=== PATIENT | male | born 1935 | race Caucasian/White ===

== ENCOUNTER 2023-01-28 14:55 | Inpatient (IN) ==
[2023-01-28 16:27] LABS: Urine Appearance Clear; Urine Bilirubin Negative (Negative); Urine Blood Negative (Negative); Urine Color Straw; Urine Glucose Negative (Negative); Urine Ketones Negative (Negative); Urine Nitrite Negative (Negative); Urine Protein Negative (Negative); Urine Specific Gravity 1.009 (1.002-1.030); Urine Urobilinogen Negative (Negative)
[2023-01-28 16:50] LABS: ABS Basophils 0.1 10^3/uL (0.0-0.1); ABS Eosinophils 0.4 10^3/uL (0.0-0.5); ABS Lymphocytes 0.9 10^3/uL (1.0-4.8); ABS Monocytes 0.7 10^3/uL (0.0-1.1); ABS Neutrophils 3.5 10^3/uL (1.5-7.6); ABS Nucleated RBC 0.01 10^3/ul; Eosinophil % 7.9 %; Hemoglobin 10.8 g/dL (13.2-16.3); Lymphocyte % 16.2 %; Mean Corpuscular Hemoglobin 34.3 pg (27-33); Mean Corpuscular Hgb Conc 34.8 g/dL (31-36); Mean Corpuscular Volume 98.6 fL (80-97); Mean Platelet Volume 6.9 fL (7.5-11.2); Nucleated Red Blood Cells % 0.1 /100 WBC (0.0-0.4); Platelet Count 161 10^3/uL (150-450); Red Blood Count 3.14 10^6/uL (4.06-5.63); Red Cell Distribution Width 14.8 % (12-17); White Blood Count 5.5 10^3/uL (3.6-10.2)
[2023-01-28 16:58] LABS: Activated Partial Thrombo Time 37.5 seconds (26.0-38.0); INR 2.05 (0.83-1.13)
[2023-01-28] MEDS ORDERED: NS 0.9% 1000 ml BAG 1,000 ML IV ONE (17:23)
[2023-01-28] MEDS ORDERED: cefTRIAXone 1 gm/50 mL D5W 1 GM/50 ML BAG IV ONE (17:33)
[2023-01-28 17:40] LABS: Albumin 3.8 g/dL (3.2-5.2); Calcium 9.8 mg/dL (8.6-10.3); Potassium 3.4 mmol/L (3.5-5.0); Total Bilirubin 0.3 mg/dL (0.2-1.0)
[2023-01-28 17:46] LABS: Albumin/Globulin Ratio 1.2 (1-3); C Reactive Protein 21.78 mg/L (<8.01); Creatinine, Serum 3.25 mg/dL (0.67-1.17); Globulin 3.1 g/dL (2-4); Total Protein 6.9 g/dL (6.4-8.9); eGFR CKD-EPI 17.9 (>60)
[2023-01-28 17:57] LABS: High Sensitivity Troponin 1 Hr 41 pg/mL (<20)
[2023-01-28] MEDS ORDERED: Vancomycin 750 MG in NS 0.9% 250 ml 250 ML IVPB SCH (21:16)
[2023-01-28] MEDS ORDERED: Vancomycin per Pharmacy 1 EA NOTE FOLLOW UP PRN (21:47)
[2023-01-28] MEDS ORDERED: Vancomycin 1,500 MG in NS 0.9% 250 ml 250 ML IVPB ONE (22:00)
[2023-01-28 22:02] LABS: Magnesium 2.1 mg/dL (1.9-2.7)
[2023-01-28] MEDS ORDERED: Albuterol HFA INHALER 8 gm MDI INH PRN (22:15)
[2023-01-29 05:33] LABS: ABS Basophils 0.1 10^3/uL (0.0-0.1); ABS Eosinophils 0.4 10^3/uL (0.0-0.5); ABS Lymphocytes 0.7 10^3/uL (1.0-4.8); ABS Monocytes 0.6 10^3/uL (0.0-1.1); ABS Neutrophils 3.8 10^3/uL (1.5-7.6); Eosinophil % 6.9 %; Hematocrit 30.7 % (38-53); Hemoglobin 10.8 g/dL (13.2-16.3); Lymphocyte % 13.3 %; Mean Corpuscular Hemoglobin 34.7 pg (27-33); Mean Corpuscular Hgb Conc 35.3 g/dL (31-36); Mean Corpuscular Volume 98.4 fL (80-97); Mean Platelet Volume 6.9 fL (7.5-11.2); Nucleated Red Blood Cells % 0.1 /100 WBC (0.0-0.4); Platelet Count 152 10^3/uL (150-450); Red Blood Count 3.11 10^6/uL (4.06-5.63); Red Cell Distribution Width 14.9 % (12-17); White Blood Count 5.5 10^3/uL (3.6-10.2)
[2023-01-29] MEDS ORDERED: Cefepime 1 GM in Dextrose 1 GM/50 ML BAG IV SCH (06:00)
[2023-01-29 06:18] LABS: Calcium 9.7 mg/dL (8.6-10.3); Creatinine, Serum 3.08 mg/dL (0.67-1.17); Magnesium 2.1 mg/dL (1.9-2.7); Potassium 3.3 mmol/L (3.5-5.0); eGFR CKD-EPI 19.1 (>60)
[2023-01-29] MEDS ORDERED: Potassium Chlor 20 meq TAB.ER PO ONE (07:01)
[2023-01-29] MEDS: Isosorbide Mononit ER 30mg TAB PO SCH (09:26)
[2023-01-29] MEDS ORDERED: Albuterol 2.5mg/3 ml (0.083%) NEB.SOLN INH PRN (11:02)
[2023-01-29] MEDS: Lactated Ringers 1000 ml BAG 1,000 ML IV SCH ×2 (14:18→21:21)
[2023-01-29] MEDS: Collagenase 250 units/gm OINT 1 tube TOPICAL SCH (14:42)
[2023-01-29] MEDS ORDERED: cefTRIAXone 1 gm/50 mL D5W 1 GM/50 ML BAG IV SCH (18:30)
[2023-01-29] MEDS: Mometasone 220 MCG MDI INH SCH (20:33)
[2023-01-30 06:56] LABS: ABS Eosinophils 0.4 10^3/uL (0.0-0.5); ABS Lymphocytes 0.8 10^3/uL (1.0-4.8); ABS Monocytes 0.5 10^3/uL (0.0-1.1); ABS Nucleated RBC 0.01 10^3/ul; Eosinophil % 8.6 %; Hematocrit 30.5 % (38-53); Hemoglobin 10.7 g/dL (13.2-16.3); Lymphocyte % 16.7 %; Mean Corpuscular Hemoglobin 34.8 pg (27-33); Mean Corpuscular Hgb Conc 35.2 g/dL (31-36); Mean Corpuscular Volume 98.9 fL (80-97); Mean Platelet Volume 7.4 fL (7.5-11.2); Nucleated Red Blood Cells % 0.1 /100 WBC (0.0-0.4); Platelet Count 136 10^3/uL (150-450); Red Blood Count 3.08 10^6/uL (4.06-5.63); Red Cell Distribution Width 14.9 % (12-17); White Blood Count 4.6 10^3/uL (3.6-10.2)
[2023-01-30 07:16] LABS: Calcium 9.9 mg/dL (8.6-10.3); Creatinine, Serum 2.82 mg/dL (0.67-1.17); Potassium 3.2 mmol/L (3.5-5.0); eGFR CKD-EPI 21.3 (>60)
[2023-01-30] MEDS: Collagenase 250 units/gm OINT 1 tube TOPICAL SCH (09:46)
[2023-01-30] MEDS: Isosorbide Mononit ER 30mg TAB PO SCH (09:46)
[2023-01-30] MEDS ORDERED: Potassium Chlor 20 meq TAB.ER PO ONE (11:32)
[2023-01-30] MEDS: Amoxicillin/Clavul 500/125 TAB (Augmentin 500 mg tab) PO SCH ×2 (12:56→20:32)
[2023-01-30] MEDS: Potassium Chlor 20 meq TAB.ER PO SCH (12:56)
[2023-01-30 13:32] LABS: Ferritin 40.4 ng/mL (24-336)
[2023-01-30 13:35] LABS: Folate > 20.00 ng/mL (5.90-24.80); Vitamin B12 1097 pg/mL (180-914)
[2023-01-30 13:39] LABS: % Iron Saturation 28 % (15-55); .Transferrin 202 mg/dL (203-362); Iron 78 ug/dL (50-212); Total Iron Binding Capacity 283 mcg/dL (250-450); Unsaturated Iron Binding 205 ug/dL
[2023-01-30] MEDS: Lactated Ringers 1000 ml BAG 1,000 ML IV SCH (17:43)
[2023-01-30] MEDS: Mometasone 220 MCG MDI INH SCH (19:51)
[2023-01-31] MEDS: Lactated Ringers 1000 ml BAG 1,000 ML IV SCH (00:51)
[2023-01-31] MEDS: Potassium Chlor 20 meq TAB.ER PO SCH (08:16)
[2023-01-31] MEDS: Amoxicillin/Clavul 500/125 TAB (Augmentin 500 mg tab) PO SCH (08:17)
[2023-01-31] MEDS: Isosorbide Mononit ER 30mg TAB PO SCH (08:17)
[2023-01-31] MEDS: Collagenase 250 units/gm OINT 1 tube TOPICAL SCH (08:17)
[2023-01-31] MEDS ORDERED: Amoxicillin/Clavul 875/125 TAB (Augmentin 875 tab) PO SCH (09:00)
[2023-01-31 09:03] LABS: ABS Eosinophils 0.4 10^3/uL (0.0-0.5); ABS Lymphocytes 0.9 10^3/uL (1.0-4.8); ABS Monocytes 0.5 10^3/uL (0.0-1.1); ABS Neutrophils 3.6 10^3/uL (1.5-7.6); Eosinophil % 6.6 %; Hematocrit 30.8 % (38-53); Hemoglobin 10.8 g/dL (13.2-16.3); Lymphocyte % 16.5 %; Mean Corpuscular Hemoglobin 34.7 pg (27-33); Mean Corpuscular Volume 99.1 fL (80-97); Mean Platelet Volume 7.2 fL (7.5-11.2); Platelet Count 141 10^3/uL (150-450); Red Cell Distribution Width 15.4 % (12-17); White Blood Count 5.3 10^3/uL (3.6-10.2)
[2023-01-31 09:09] LABS: Creatinine, Serum 2.82 mg/dL (0.67-1.17); Magnesium 1.9 mg/dL (1.9-2.7); Potassium 3.5 mmol/L (3.5-5.0); eGFR CKD-EPI 21.3 (>60)
[2023-01-31 10:37] VITALS: BP 121/51
== END 2023-01-31 14:50 | disposition home or self-care (01) | DRG 539 ==
LOC: ED 14:55 → EDHOLD 14:55 → SUATTDRO 19:36 → MEDTELE 01-29 11:42
PROVIDERS: ADMIT Internal Medicine; ATTEND Student in an Organized Health Care Education/Training Program

== ENCOUNTER 2023-03-17 14:54 | Inpatient (IN) ==
[2023-03-17 15:38] LABS: ABS Eosinophils 0.4 10^3/uL (0.0-0.5); ABS Lymphocytes 0.9 10^3/uL (1.0-4.8); ABS Monocytes 0.8 10^3/uL (0.0-1.1); ABS Neutrophils 5.7 10^3/uL (1.5-7.6); ABS Nucleated RBC 0.01 10^3/ul; Eosinophil % 5.3 %; Hematocrit 31.8 % (38-53); Hemoglobin 10.9 g/dL (13.2-16.3); Mean Corpuscular Hgb Conc 34.3 g/dL (31-36); Mean Platelet Volume 7.3 fL (7.5-11.2); Nucleated Red Blood Cells % 0.1 %/100WBC (0.0-0.8); Platelet Count 202 10^3/uL (150-450); Red Blood Count 3.21 10^6/uL (4.06-5.63); Red Cell Distribution Width 15.3 % (12-17); White Blood Count 7.8 10^3/uL (3.6-10.2)
[2023-03-17 16:07] LABS: Albumin 3.3 g/dL (3.2-5.2); Albumin/Globulin Ratio 0.9 (1-3); C Reactive Protein 102.38 mg/L (<8.01); Calcium 9.5 mg/dL (8.6-10.3); Creatinine, Serum 3.31 mg/dL (0.67-1.17); Globulin 3.6 g/dL (2-4); Potassium 3.2 mmol/L (3.5-5.0); Total Bilirubin 0.5 mg/dL (0.2-1.0); Total Protein 6.9 g/dL (6.4-8.9); eGFR CKD-EPI 17.5 (>60)
[2023-03-17] MEDS ORDERED: Acetaminophen IV 1 GM/100ML 1,000 MG/100 ML BAG IV ONE (17:34)
[2023-03-17] MEDS ORDERED: Cefepime 2 GM in Dextrose 2 GM/50 ML BAG IV ONE (18:14)
[2023-03-17] MEDS ORDERED: Vancomycin 1,000 MG in NS 0.9% 250 ml 250 ML IVPB ONE (18:14)
[2023-03-17] MEDS ORDERED: Lactated Ringers 1000 ml BAG 1,000 ML IV ONE (18:14)
[2023-03-17 18:44] LABS: INR 2.56 (0.83-1.13)
[2023-03-17 20:05] LABS: Urine Appearance Clear; Urine Bilirubin Negative (Negative); Urine Blood Negative (Negative); Urine Color Yellow; Urine Glucose Negative (Negative); Urine Ketones Negative (Negative); Urine Nitrite Negative (Negative); Urine Protein 1+(30 mg/dL) (Negative); Urine Specific Gravity 1.013 (1.002-1.030); Urine Urobilinogen Negative (Negative)
[2023-03-17 20:11] LABS: Urine Bacteria Absent (Absent); Urine Red Blood Cell Trace(0-2/hpf) (Absent); Urine Squamous Epithelial Cell Present (Absent); Urine White Blood Cell Trace(0-5/hpf) (Absent)
[2023-03-17] MEDS ORDERED: Potassium Chlor 10 meq TAB PO ONE (22:37)
[2023-03-17] MEDS ORDERED: Albuterol 2.5mg/3 ml (0.083%) NEB.SOLN INH PRN (22:49)
[2023-03-17] MEDS ORDERED: Albuterol HFA INHALER 8 gm MDI INH PRN (22:49)
[2023-03-17] MEDS ORDERED: Warfarin per PHARMACY **NOTE FOLLOW UP SCH (23:00)
[2023-03-17] MEDS ORDERED: Vancomycin per Pharmacy 1 EA NOTE FOLLOW UP SCH (23:00)
[2023-03-17] MEDS ORDERED: Cefepime 2 GM in Dextrose 2 GM/50 ML BAG IV SCH (23:00)
[2023-03-17] MEDS ORDERED: Lidocaine 2% w EPI 1:100,000 20 ML MDV VIAL ONE (23:28)
[2023-03-17] MEDS ORDERED: Lidocaine 1% MPF 5 ML VIAL ONE (23:29)
[2023-03-18 03:30] LABS: Folate > 20.00 ng/mL (5.90-24.80)
[2023-03-18 03:31] LABS: Vitamin B12 1266 pg/mL (180-914)
[2023-03-18] MEDS ORDERED: Vancomycin Random Level NOTE FOLLOW UP ONE (06:00)
[2023-03-18] MEDS ORDERED: Cefepime 1 GM in Dextrose 1 GM/50 ML BAG IV SCH (06:00)
[2023-03-18 06:16] LABS: ABS Basophils 0.1 10^3/uL (0.0-0.1); ABS Eosinophils 0.5 10^3/uL (0.0-0.5); ABS Lymphocytes 0.7 10^3/uL (1.0-4.8); ABS Monocytes 0.7 10^3/uL (0.0-1.1); ABS Neutrophils 5.9 10^3/uL (1.5-7.6); ABS Nucleated RBC 0.01 10^3/ul; Eosinophil % 6.9 %; Hemoglobin 10.7 g/dL (13.2-16.3); Lymphocyte % 8.7 %; Mean Corpuscular Hemoglobin 34.3 pg (27-33); Mean Corpuscular Hgb Conc 34.6 g/dL (31-36); Mean Platelet Volume 7.1 fL (7.5-11.2); Nucleated Red Blood Cells % 0.1 %/100WBC (0.0-0.8); Platelet Count 195 10^3/uL (150-450); Red Blood Count 3.13 10^6/uL (4.06-5.63); Red Cell Distribution Width 14.9 % (12-17); White Blood Count 7.9 10^3/uL (3.6-10.2)
[2023-03-18 06:36] LABS: INR 2.36 (0.83-1.13)
[2023-03-18 06:47] LABS: Calcium 9.4 mg/dL (8.6-10.3); Creatinine, Serum 3.23 mg/dL (0.67-1.17); Magnesium 1.6 mg/dL (1.9-2.7); Potassium 2.9 mmol/L (3.5-5.0); eGFR CKD-EPI 18.1 (>60)
[2023-03-18 07:12] LABS: Vancomycin Random 9.6 mcg/mL
[2023-03-18] MEDS ORDERED: Vancomycin 1,250 MG in NS 0.9% 250 ml 250 ML IVPB ONE (09:30)
[2023-03-18] MEDS ORDERED: Magnesium Sulfate 2 gm BAG 2 GM/50 ML BAG IVPB ONE (11:17)
[2023-03-18] MEDS ORDERED: Magnesium Sulfate IV 1GM/100ML 1 GM/100 ML BAG IV ONE (13:17)
[2023-03-18] MEDS: Isosorbide Mononit ER 30mg TAB PO SCH (13:22)
[2023-03-18] MEDS: KCL 20 MEQ/100 ML IVPREMIX 20 MEQ/100 ML BAG IV SCH ×2 (13:29→16:29)
[2023-03-18] MEDS ORDERED: Zosyn per Pharmacy NOTE FOLLOW UP SCH (16:00)
[2023-03-18] MEDS ORDERED: ZOSYN 3.375 GM x ONE DOSE over 30 miuntes IV (17:00)
[2023-03-18] MEDS: Warfarin DAILY REMINDER **NOTE FOLLOW UP SCH (18:54)
[2023-03-19] MEDS: ZOSYN 3.375 GM Q12H per EXTENDED INFUSION IV SCH ×2 (01:00→13:06)
[2023-03-19 06:28] LABS: INR 1.75 (0.83-1.13)
[2023-03-19] MEDS ORDERED: Magnesium Sulfate 2 gm BAG 2 GM/50 ML BAG IVPB ONE (07:24)
[2023-03-19] MEDS: Isosorbide Mononit ER 30mg TAB PO SCH (08:46)
[2023-03-19] MEDS: KCL 20 MEQ/100 ML IVPREMIX 20 MEQ/100 ML BAG IV SCH ×2 (08:50→10:50)
[2023-03-19] MEDS ORDERED: Ferric Gluconate IV 125 MG in NS 0.9% 100 ml BAG 100 ML IVPB ONE (09:00)
[2023-03-19] MEDS ORDERED: Vancomycin Trough Check NOTE FOLLOW UP ONE (09:00)
[2023-03-19 10:02] LABS: ABS Eosinophils 0.6 10^3/uL (0.0-0.5); ABS Lymphocytes 0.6 10^3/uL (1.0-4.8); ABS Monocytes 0.4 10^3/uL (0.0-1.1); ABS Neutrophils 5.5 10^3/uL (1.5-7.6); Eosinophil % 7.9 %; Hematocrit 31.4 % (38-53); Hemoglobin 10.6 g/dL (13.2-16.3); Lymphocyte % 8.2 %; Mean Corpuscular Hemoglobin 33.6 pg (27-33); Mean Corpuscular Hgb Conc 33.9 g/dL (31-36); Mean Corpuscular Volume 99.1 fL (80-97); Mean Platelet Volume 7.2 fL (7.5-11.2); Nucleated Red Blood Cells % 0.1 %/100WBC (0.0-0.8); Platelet Count 205 10^3/uL (150-450); Red Blood Count 3.17 10^6/uL (4.06-5.63); Red Cell Distribution Width 15.2 % (12-17); White Blood Count 7.1 10^3/uL (3.6-10.2)
[2023-03-19 10:21] LABS: Calcium 9.8 mg/dL (8.6-10.3); Creatinine, Serum 2.97 mg/dL (0.67-1.17); Magnesium 2.8 mg/dL (1.9-2.7)
[2023-03-19 10:22] LABS: Creatinine, Serum 2.98 mg/dL (0.67-1.17); eGFR CKD-EPI 19.9 (>60)
[2023-03-19] MEDS ORDERED: Acetaminophen IV 1 GM/100ML 1,000 MG/100 ML BAG IV PRN (10:39)
[2023-03-19] MEDS: Senna TAB 8.6 mg TAB PO SCH (10:50)
[2023-03-19] MEDS ORDERED: Potassium Chloride LIQUID 20 MEQ/15 ML LIQUID PO ONE (13:50)
[2023-03-19] MEDS ORDERED: Potassium Chlor 20 meq TAB.ER PO ONE (13:50)
[2023-03-19] MEDS: Warfarin DAILY REMINDER **NOTE FOLLOW UP SCH (18:27)
[2023-03-19] MEDS: Polyethylene Glycol 3350 17 GM PACKET PO SCH (22:18)
[2023-03-20] MEDS: ZOSYN 3.375 GM Q12H per EXTENDED INFUSION IV SCH ×2 (00:34→13:54)
[2023-03-20 06:22] LABS: INR 2.65 (0.83-1.13)
[2023-03-20 06:25] LABS: Calcium 9.5 mg/dL (8.6-10.3); Creatinine, Serum 2.79 mg/dL (0.67-1.17); eGFR CKD-EPI 21.5 (>60)
[2023-03-20] MEDS ORDERED: Potassium Chlor 20 meq TAB.ER PO ONE ×2 (07:30→12:00)
[2023-03-20] MEDS: Senna TAB 8.6 mg TAB PO SCH (08:31)
[2023-03-20] MEDS: Isosorbide Mononit ER 30mg TAB PO SCH (08:33)
[2023-03-20] MEDS: Polyethylene Glycol 3350 17 GM PACKET PO SCH (08:37)
[2023-03-20] MEDS ORDERED: Influenza vaccine *QUAD* *2023-24* 0.5 ML SYRINGE IM ONE (12:00)
[2023-03-20 13:59] VITALS: BP 118/78
== END 2023-03-20 15:00 | disposition home or self-care (01) | DRG 593 ==
LOC: ED 14:54 → EDHOLD 19:39 → SUATTDRO 19:39 → MED 19:39
PROVIDERS: ADMIT Internal Medicine; ATTEND Hospitalist